=== PATIENT | male | born 1955 | race Hispanic/Latino ===

== ENCOUNTER 2019-01-17 19:41 | Emergency (ER) | payer MEDICARE ==
[2019-01-17] MEDS ORDERED: DEXTROSE 50%-WATER 50 ML DISP.SYRIN IV ONE (20:54)
[2019-01-17 21:04] LABS: APPEARANCE,URINE Clear (CLEAR); BILIRUBIN,URINE Negative (NEGATIVE); COLOR,URINE Yellow (YELLOW); GLUCOSE, URINE (UA) >=1000 mg/dL (NEGATIVE); KETONES,URINE Negative (NEGATIVE); LEUKOCYTE ESTERASE ,URINE Trace (NEGATIVE); NITRATE,URINE Negative (NEGATIVE); OCCULT BLOOD,URINE Negative (NEGATIVE); PH,URINE 5.5 (5.0-8.0); PROTEIN,URINE Negative (NEGATIVE)
[2019-01-17 21:26] LABS: BACTERIA,URINE Rare /HPF (None Seen); RBC,URINE 0-1 /HPF (0-1); SQUAMOUS EPITHELIAL CELL,UR Rare /HPF (0-2)
[2019-01-17 21:37] LABS: BASOPHILS % (AUTO) 0.5 % (0.0-5.0); EOSINOPHILS % (AUTO) 1.7 % (0.0-8.0); HEMATOCRIT 39.2 % (42-54); LYMPHOCYTES % (AUTO) 14.3 % (21.0-51.0); MEAN CORPUSCULAR HEMOGLOBIN 31.5 pg (27.0-33.0); MEAN CORPUSCULAR HGB CONC 34.1 g/dL (32.0-36.0); MEAN CORPUSCULAR VOLUME 92.5 fL (79-99); NEUTROPHILS % (AUTO) 75.5 % (40.0-77.0); PLATELET COUNT (AUTO) 259 K/uL (130-400); RED BLOOD CELL COUNT(AUTO) 4.24 MIL/uL (4.50-6.20); WHITE BLOOD COUNT (AUTO) 7.6 K/uL (4.8-10.8)
[2019-01-17 21:42] LABS: POTASSIUM 3.6 mmol/L (3.5-5.1)
[2019-01-17 21:47] LABS: ALBUMIN 3.6 g/dL (3.5-5.0); BILIRUBIN,TOTAL 0.3 mg/dL (0.2-1.0); TOTAL PROTEIN, SERUM 7.2 g/dL (6.0-8.3)
== END 2019-01-17 23:46 | disposition home or self-care (01) ==
LOC: EDH 19:41
DX: E11.649 Type 2 diabetes mellitus with hypoglycemia without coma (principal); I10 Essential (primary) hypertension
CPT/HCPCS: 36415; 80053; 81001; 82550; 82948 ×3; 84484; 85025; 96374; 99284; J7070

== ENCOUNTER 2019-03-29 12:57 | Observation (INO) | payer MEDICARE ==
[~2019-03-29] VITALS: Ht 170.2 cm; Wt 77.6 kg
[2019-03-29 13:16] LABS: BASOPHILS % (AUTO) 0.4 % (0.0-5.0); EOSINOPHILS % (AUTO) 0.3 % (0.0-8.0); HEMATOCRIT 43.9 % (42-54); LYMPHOCYTES % (AUTO) 21.2 % (21.0-51.0); MEAN CORPUSCULAR HEMOGLOBIN 31.6 pg (27.0-33.0); MEAN CORPUSCULAR HGB CONC 34.3 g/dL (32.0-36.0); MEAN CORPUSCULAR VOLUME 92.2 fL (79-99); MONOCYTES % (AUTO) 7.9 % (3.0-13.0); NEUTROPHILS % (AUTO) 70.2 % (40.0-77.0); NUCLEATED RED BLOOD CELLS 0.1 % (0.0-0.19); PLATELET COUNT (AUTO) 255 K/uL (130-400); RED BLOOD CELL COUNT(AUTO) 4.76 MIL/uL (4.50-6.20); RED CELL DISTRIBUTION WIDTH 13.2 % (11.0-15.5); WHITE BLOOD COUNT (AUTO) 8.1 K/uL (4.8-10.8)
[2019-03-29 13:23] LABS: CREATININE 0.9 mg/dL (0.5-1.5); POTASSIUM 4.1 mmol/L (3.5-5.1)
[2019-03-29 13:24] LABS: INR 0.91 (0.85-1.15); PARTIAL THROMBOPLASTIN TIME 25.9 SEC (26.3-35.5); PROTHROMBIN TIME 9.6 SEC (9.6-11.6)
[2019-03-29 13:27] LABS: ALBUMIN 3.7 g/dL (3.5-5.0); BILIRUBIN,TOTAL 0.6 mg/dL (0.2-1.0); TOTAL PROTEIN, SERUM 7.8 g/dL (6.0-8.3)
[2019-03-29 13:28] LABS: AMYLASE 100 U/L (25-115); LIPASE 105 U/L (114-286)
[2019-03-29 13:35] LABS: CREATINE KINASE, TOTAL 68 U/L (21-232); MYOGLOBIN 26 ng/mL (10-92); TROPONIN I < 0.04 ng/mL (0.00-0.06)
[2019-03-29] MEDS ORDERED: NITROGLYCERIN 1GM/1 INCH PACKET TD ONE (13:40)
[2019-03-29] MEDS ORDERED: ASPIRIN 325 MG TABLET ONE (13:40)
[2019-03-29 14:24] LABS: APPEARANCE,URINE Clear (CLEAR); BILIRUBIN,URINE Negative (NEGATIVE); COLOR,URINE Yellow (YELLOW); GLUCOSE, URINE (UA) >=1000 mg/dL (NEGATIVE); KETONES,URINE Trace mg/dL (NEGATIVE); LEUKOCYTE ESTERASE ,URINE Negative (NEGATIVE); NITRATE,URINE Negative (NEGATIVE); OCCULT BLOOD,URINE Negative (NEGATIVE); PH,URINE 6.5 (5.0-8.0); PROTEIN,URINE Negative (NEGATIVE)
[2019-03-29 14:35] LABS: BACTERIA,URINE Rare /HPF (None Seen); RBC,URINE 0-1 /HPF (0-1); SQUAMOUS EPITHELIAL CELL,UR Rare /HPF (0-2); WBC,URINE 0-1 /HPF (0-1)
[2019-03-29] MEDS ORDERED: NITROGLYCERIN 0.4 MG SL TAB SL PRN (18:00)
[2019-03-29] MEDS ORDERED: MORPHINE SULFATE 2 MG/ML 1ML SYG IV PRN (18:00)
[2019-03-29] MEDS ORDERED: ACETAMINOPHEN 325 MG TAB PO PRN (18:00)
[2019-03-29] MEDS ORDERED: ONDANSETRON HCL 4 MG/2 ML VIAL IV PRN (18:00)
[2019-03-29 18:19] LABS: HEMOGLOBIN A1C 9.9 % (4.0-6.0)
[2019-03-29 18:26] LABS: CHOLESTEROL 299 mg/dL (<200); LDL DIRECT 170 mg/dL (0-99); TRIGLYCERIDES 347 mg/dL (30-200)
[2019-03-29 18:46] LABS: HDL CHOLESTEROL 36 mg/dL (29-71)
[2019-03-29 18:59] LABS: CREATINE KINASE, TOTAL 52 U/L (21-232); MYOGLOBIN 26 ng/mL (10-92); TROPONIN I < 0.04 ng/mL (0.00-0.06)
[2019-03-29] MEDS ORDERED: FAMOTIDINE 20MG TAB 20 MG TAB ONE (20:53)
[2019-03-29] MEDS ORDERED: ATORVASTATIN CALCIUM 20 MG TABLET ONE (20:53)
[2019-03-29] MEDS ORDERED: METOPROLOL TARTRATE 25 MG TAB ONE (20:53)
[2019-03-29] MEDS: FAMOTIDINE 20MG TAB 20 MG TAB PO SCH (21:00)
[2019-03-29] MEDS: METOPROLOL TARTRATE 25 MG TAB PO SCH (21:00)
[2019-03-29] MEDS ORDERED: ATORVASTATIN CALCIUM 20 MG TABLET PO SCH (21:00)
[2019-03-29 22:55] VITALS: BP 133/90
[2019-03-29] MEDS: INSULIN HUMULIN R 100 UNIT/ML 3ML SQ SCH (23:46)
[2019-03-30 01:00] LABS: CREATINE KINASE, TOTAL 53 U/L (21-232); MYOGLOBIN 33 ng/mL (10-92); TROPONIN I < 0.04 ng/mL (0.00-0.06)
--- NOTE | 2019-03-30 03:03 | NUR ---
CHEST PAIN Pt came from [facility] x [facility],states chest started to hurt again,medicated with 1 ntg sl,offerred relief.
[2019-03-30 04:00] VITALS: BP 113/69
[2019-03-30] MEDS: INSULIN HUMULIN R 100 UNIT/ML 3ML SQ SCH (06:06)
--- NOTE | 2019-03-30 06:06 | NUR ---
BLOOD SUGAR Pt refused insulin per sliding scale for blood sugar 204,states he does not use insulin.
[2019-03-30 06:48] LABS: CREATINE KINASE, TOTAL 50 U/L (21-232); MYOGLOBIN 31 ng/mL (10-92); TROPONIN I < 0.04 ng/mL (0.00-0.06)
[2019-03-30 08:00] VITALS: BP 109/66
[2019-03-30] MEDS ORDERED: ENOXAPARIN SODIUM 40 MG/0.4 ML SYRINGE SQ SCH (09:00)
[2019-03-30] MEDS ORDERED: ASPIRIN 325 MG TABLET PO SCH (09:00)
[2019-03-30] MEDS: FAMOTIDINE 20MG TAB 20 MG TAB PO SCH (09:24)
[2019-03-30] MEDS: METOPROLOL TARTRATE 25 MG TAB PO SCH (09:24)
[2019-03-30] MEDS ORDERED: GABA-529 PO (11:02)
[2019-03-30] MEDS ORDERED: METF-446 PO (11:02)
[2019-03-30] MEDS ORDERED: CETI10TA57 PO (11:02)
[2019-03-30] MEDS ORDERED: GLIP10TA9 PO (11:02)
[2019-03-30] MEDS ORDERED: [UNRECOGNIZED DRUG - OTHER] PO (11:02)
[2019-03-30] MEDS ORDERED: LOSA25TA41 PO (11:02)
[2019-03-30] MEDS ORDERED: SIMV40TA59 PO (11:02)
[2019-03-30] MEDS ORDERED: DULO30CA52 PO (11:02)
--- NOTE | 2019-03-30 11:27 | NUR ---
PATIENT AND DAUGHTER GIVEN DISCHARGE ORDERS AND VERBALIZED UNDERSTANDING , IV REMOVED WITH CATHETER INTACT AND PRESSURE HELD TO SITE THEN SITE DRESSED. TELEMETRY UNIT NOTIFIED OF PATIENT DISCHARGE AND UNIT REMOVE AND RETURNED. REVIEWED MEDICATIONS WITH PATIENT NO QUESTIONS OR CONCERNS AT THIS TIME. PATIENT UP IN SHOWER AND WILL LET STAFF KNOW WHEN HE IS DRESSED AND READY TO LEAVE.
--- NOTE | 2019-03-30 13:08 | NUR ---
Rd Screen for admit Trigger: Pt admitted for CP w/ pmhx of htn, dm, hyperlipidemia. Pt reports good po intake and states he attempts to follow dm diet most meals. diet: heart healthy. meds: lovenox, pepcid, lipitor, insulin ss. labs: hgbaic 9.9, trig 347, chol 299, LDL 170, Alb 3.7, na 134, LBM: 7/8 Recommendations: 1. Change current diet to 75gm cc/ heart healthy. 2. RDN to educate pt on heart healthy diet. f/u in 5-7 days.
--- NOTE | 2019-03-30 13:12 | NUR ---
Ntr education: Pt reports attempting to follow dm and heart healthy diet most meals but did admit that he "cheats" on his diet frequently. Pt was educated on heart healthy diet w/ emphasis on low sodium intake due to pt's lack of knowledge in the importance of a low sodium diet. Pt asked multiple question-all answered with satisfaction by MATI. Pt verbalized understanding of content and an overall satisfaction in the education process. Handout provided for future reference. Addendum: 03/30/19 at [address] Amended: Links added.
[2019-03-31] MEDS ORDERED: LOSARTAN 50 MG TABLET PO SCH (09:00)
== END 2019-03-30 11:50 | disposition home or self-care (01) ==
LOC: EDH 12:57 → EDHIP 17:52 → 3DH 22:32
PROVIDERS: ADMIT Internal Medicine; ATTEND Internal Medicine
DX: R07.89 Other chest pain (principal); E87.1 Hypo-osmolality and hyponatremia; E78.5 Hyperlipidemia, unspecified; I10 Essential (primary) hypertension; E11.40 Type 2 diabetes mellitus with diabetic neuropathy, unspecified; F32.9 Major depressive disorder, single episode, unspecified; E78.00 Pure hypercholesterolemia, unspecified; Z91.19 Patient's noncompliance with other medical treatment and regimen; Z79.899 Other long term (current) drug therapy
CPT/HCPCS: 36415 ×2; 71045; 80053; 80061; 81001; 82150; 82550 ×4; 82948 ×2; 83036; 83690; 83874 ×4; 84484 ×4; 85025; 85610; 85730; 93005; 99284; G0378 ×18; J1650

== ENCOUNTER 2020-08-19 18:13 | Emergency (ER) | payer MEDICARE ==
[~2020-08-19 18:13] MED LIST: CETI10TA57 PO; DULO30CA52 PO; GABA-529 PO; GLIP10TA9 PO; LOSA25TA41 PO; METF-446 PO; SIMV40TA59 PO; [UNRECOGNIZED DRUG - OTHER] PO
[2020-08-19 19:25] LABS: BASOPHILS % (AUTO) 0.5 % (0.0-5.0); EOSINOPHILS % (AUTO) 4.2 % (0.0-8.0); HEMATOCRIT 41.6 % (42-54); LYMPHOCYTES % (AUTO) 22.4 % (21.0-51.0); MEAN CORPUSCULAR HEMOGLOBIN 32.1 pg (27.0-33.0); MEAN CORPUSCULAR HGB CONC 35.8 g/dL (32.0-36.0); MEAN CORPUSCULAR VOLUME 89.7 fL (79-99); MONOCYTES % (AUTO) 8.4 % (3.0-13.0); PLATELET COUNT (AUTO) 275 K/uL (130-400); RED BLOOD CELL COUNT(AUTO) 4.64 MIL/uL (4.50-6.20); RED CELL DISTRIBUTION WIDTH 12.2 % (11.0-15.5); WHITE BLOOD COUNT (AUTO) 6.2 K/uL (4.8-10.8)
[2020-08-19 19:35] LABS: POTASSIUM 4.9 mmol/L (3.5-5.1)
[2020-08-19 19:40] LABS: BILIRUBIN,TOTAL 0.4 mg/dL (0.2-1.0); TOTAL PROTEIN, SERUM 7.8 g/dL (6.0-8.3)
[2020-08-19 19:40] LABS: AMPHET/METH SCREEN,URINE NEGATIVE (NEGATIVE); BARBITURATE SCREEN, URINE NEGATIVE (NEGATIVE); BENZODIAZEPINES SCREEN,URINE NEGATIVE (NEGATIVE); CANNABINOID SCREEN,URINE NEGATIVE (NEGATIVE); COCAINE SCREEN,URINE NEGATIVE (NEGATIVE); OPIATE SCREEN,URINE NEGATIVE (NEGATIVE); PHENCYCLIDINE SCREEN,URINE NEGATIVE (NEGATIVE)
== END 2020-08-19 20:43 | disposition home or self-care (01) ==
LOC: EDH 18:13
DX: I10 Essential (primary) hypertension (principal); R51.9 Headache, unspecified; E78.5 Hyperlipidemia, unspecified; E11.9 Type 2 diabetes mellitus without complications; Z86.73 Personal history of transient ischemic attack (TIA), and cerebral infarction without residual deficits
CPT/HCPCS: 36415; 80053; 80305; 84484; 85025; 93005

== ENCOUNTER → 2021-10-04 | Outpatient (CLI) | payer OTHER, MEDICARE ==
[~2021-10-04] MED LIST changes: +GADOTERATE MEGLUMINE 10 MMOL/20 ML VIAL IV ONE
== END | disposition home or self-care (01) ==
LOC: RAH 13:36
PROVIDERS: ATTEND Family Medicine
DX: R51.9 Headache, unspecified (principal)
CPT/HCPCS: 70553; A9575